=== PATIENT | female | born 1955 | race Asian ===

== ENCOUNTER 2022-11-07 16:46 | Emergency (ER) | payer MEDICARE, MEDICAID, SELFPAY ==
--- NOTE | ~2022-11-07 | CT_ITS ---
EXAMINATION: CT HEAD WITHOUT CONTRAST CLINICAL INFORMATION: Past medical history of brain tumor. Headache x1 month. COMPARISON: No relevant prior imaging. TECHNIQUE: Contiguous axial imaging was performed from the skull base to vertex without intravenous administration of contrast. This CT examination was performed using dose optimization techniques as appropriate, variously including the following: *Automated exposure control *Adjustment of mA and/or kV according to patient size (this includes techniques or standardized protocols for targeted exams where dose is matched to indication/reason for exam; i.e. 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 There is a small focus of cystic encephalomalacia within the left superior parietal lobule. No acute intracranial hemorrhage. No abnormal extra-axial collection. There are scattered nonspecific foci of hypoattenuation within the periventricular white matter most likely represent a chronic manifestation of small vessel ischemia. Cruz-white matter differentiation is otherwise preserved and there is no evidence of acute territorial infarct. The skull base is intact. No mastoid or middle ear effusion. Moderate nasal sinus disease primarily affecting the ethmoid air cells. Globes and orbits are grossly symmetric. CT/CT head/brain wo IV con IMPRESSION: There are chronic changes of a left craniotomy at the vertex. There is a small focus of cystic encephalomalacia within the left superior parietal lobule. Scattered chronic small vessel ischemic changes are also visualized within the periventricular white matter. No evidence of acute territorial infarct or hemorrhage.
[2022-11-07 16:53] VITALS: BP 190/102; PULSE 64; O2SAT 98
[2022-11-07 17:03] VITALS: BP 185/92; PULSE 65; RESP 16; TEMP 36.6; O2SAT 97; BMI 29.4
--- NOTE | 2022-11-07 17:37 | ECG_ITS ---
Test Reason : headache Blood Pressure : / mmHG Vent. Rate : 089 BPM Atrial Rate : 089 BPM P-R Int : 162 ms QRS Dur : 086 ms QT Int : 374 ms P-R-T Axes : 035 002 057 degrees QTc Int : 455 ms Normal sinus rhythm with sinus arrhythmia T wave abnormality, consider anterolateral ischemia Abnormal ECG No previous ECGs available Referred By: Collin Cifuentes Electronically Signed By:Michael Gamble
--- NOTE | 2022-11-07 17:40 | ED_ITS ---
HPI - General Adult General Chief complaint: Headache Stated complaint: SEVERE HEADACHE Time Seen by Provider: 11/07/22 17:11 Source: patient Mode of arrival: ambulatory Limitations: no limitations History of Present Illness HPI narrative: 67 yold female with pmh of HTN, DM, and brain tumor exicised in 2009 presents to the ED for headache for the past month that has worsened the past 5 days. patient denies any vision changes, loss of vision, fever, chills, nausea, neck pain, photophophbia, slurred speech, facial droop, paralysis of extremites, recent trauma, or rash. patient states brain tumor in 2009 did not metasititze. patient states not followed up with her oncologist and had a CT scan of head in 6 years. Patient denies any chest pain or shortness of breath. patient denies any visual changes. Related Data Previous Rx's Medication Instructions Recorded ketorolac 10 mg tablet 10 mg PO QID PRN pain 5 days #20 11/07/22 tabs Allergies Allergy/AdvReac Type Severity Reaction Status Date / Time No Known Allergies Allergy Verified 11/07/22 17:04 Review of Systems Review of Systems: headache Yes all other systems are reviewed and are negative PMFSH Social History Social History Advance Directives: No Advance Directives Information Provided: No Physical Exam ED Vital Signs: Vital Signs - 24 hr 11/07/22 17:03 11/07/22 18:34 11/07/22 20:00 Temperature 97.8 F 98.4 F 98.2 F Pulse Rate 65 72 64 Respiratory Rate 16 18 15 Blood Pressure 185/92 H 140/83 H 141/80 H Pulse Oximetry 97 98 97 Oxygen Delivery Method Room Air Room Air Room Air 11/07/22 22:00 Temperature 98.1 F Pulse Rate 65 Respiratory Rate 16 Blood Pressure 146/78 H Pulse Oximetry 97 Oxygen Delivery Method Room Air BMI result Body Mass Index 29.4 Const General: cooperative, healthy appearing, comfortable, no acute distress, well developed, alert, awake and Physically active Orientation/consciousness: oriented to person, oriented to place, oriented to time and patient oriented x3 HENMT Head: Yes normal to inspection, Yes No palpable skull fracture present, Yes normocephalic, Yes atraumatic and No abrasion Head images: 1. area of headache. area of brain surgery incision in the past. no eccymosis, erythema, pus drainage, or temdermess Ears: hearing grossly normal bilaterally, external ears normal, TM's normal bilaterally, TM normal on the right, TM normal on the left, EAC's normal, mastoids normal and no periauricular adenopathy Face and sinus: Yes normal facial exam and Yes sinuses nontender Throat: Yes posterior oropharynx normal, Yes tonsils normal and Yes uvula midline Eyes General: appearance normal, both eyes and all related structures Pupils: Equal, round and reactive pupils present Neck Neck: Yes normal visual inspection, Yes full ROM, Yes no lymphadenopathy, Yes no meningeal signs, Yes trachea midline, Yes supple, No anterior neck swelling, No midline deformity, No positive Brudzinski's sign, No positive Kernig's sign and No tender Chest Chest palpation & inspection: normal inspection of the chest and normal palpation of entire chest wall Resp Effort & Inspection: normal respiratory effort and able to speak in complete sentences Auscultation: clear to auscultation bilaterally Cardio Jugular venous distension: no JVD Heart sounds: S1 normal heart sound present and S2 normal heart sound present GI Inspection: Yes normal to inspection and No abdominal wall ecchymosis Palpation (GI): Soft to palpation, not firm, nontender, no guarding and not rigid General: No CVA tenderness and Yes no CVA tenderness Back/Spine/Pelvis Back: no CVA tenderness, No CVA tenderness and No back tenderness Skin General skin exam: no rashes or lesions noted and elasticity normal Neuro General: oriented to person, oriented to place, oriented to time, patient oriented x3, gait normal, tone normal, moves all extremities, Normal light touch and pain sensation, no meningeal signs, no focal motor deficits, CN's II-XI intact bilaterally and normal sensation to monofilament Cranial nerves: Yes Equal, round and reactive pupils present Extrem General: Yes normal to inspection and Yes full ROM Psych Appearance: grossly normal, well kempt and not disheveled Course Course Course Narrative: 67 yold female with headache for the past month. no trauma. will do repeat scan, labs, and pain meds. ESR and CRP althouth very unlikely Temporal arteritis Reevaluation(s) Reevaluation #1: Patient sleeping comforably in bed. HEad CT scan does not shows new brain mass, bleed, or stroke. labs normal. CRP negative. ESR slightly elevated without any visual changes and resloving headache unliekly Temporal artertis. Dr. Yadav Agrees. History & physical exam does not indicate meningitis. Time: 20:06 Medications Administered Discontinued Medications Generic Name Dose Route Start Last Admin Trade Name Regina PRN Reason Stop Dose Admin Sodium Chloride 1,000 mls @ 999 mls/hr 11/07/22 20:41 11/07/22 23:04 Ns IV 11/07/22 21:41 Infused .Q1H1M STA Infusion Ketorolac Tromethamine 30 mg 11/07/22 20:39 11/07/22 21:26 Ketorolac Tromethamine 30 Mg/Ml Vial IVPUSH 11/07/22 20:40 30 mg ONCE ONE Administration Metoclopramide HCl 10 mg 11/07/22 17:36 11/07/22 18:10 Metoclopramide Hcl 10 Mg/2 Ml Vial IVPUSH 11/07/22 17:37 10 mg ONCE ONE Administration Morphine Sulfate 4 mg 11/07/22 17:36 11/07/22 18:10 Morphine Sulfate 4 Mg/Ml Cartridge IVPUSH 11/07/22 17:37 4 mg ONCE ONE Administration Protocol Medical Decision Making Medical Decision Making MDM Narrative: 67 yold female presents to the ED for left parietal headache for one month. She denies any fever, chills, photophobia, neck stiffness, visual changes, loss of vision, recent head trauma, slurred speech, facial droop, or paralysis of extremities. Head CT scan negative for new brain mass, bleed, or stroke. Troponin is negaive. EKG negative stemi. history& physical exam not indicated meningitis or encephalitis. Although slight elevated ESR history & physical exam does not indicate Temporal arteritis. Differential Diagnosis Differential Diagnoses: The differential diagnosis associated with the presentation includes (brain bleed, skull fracture, meningitis, temporal arteritis, encephalitis, stroke, brain mass) Admission/Observation Consideration of admission/observation: Escalation of care including admission/observation considered Lab Data 11/07/22 18:31 11/07/22 18:31 Labs: Lab Results 11/07/22 11/07/22 11/07/22 Range/Units 18:31 18:31 18:31 WBC 6.8 (4.8-10.8) X10*3/uL RBC 4.03 L (4.20-5.50) X10*6/uL Hgb 11.9 L (12.0-16.0) g/dl Hct 35.2 L (37.0-47.0) % MCV 87.3 (80.0-98.0) fL MCH 29.5 (27.0-33.0) pg MCHC 33.8 (31.0-35.0) g/dl RDW 12.6 (11.0-16.0) % Plt Count 280 (160-400) X10*3/uL MPV 11.9 (9.4-12.3) fL Immature Gran % (Auto) 0.4 (0.0-0.4) % Neut % (Auto) 54.4 (45-73) % Lymph % (Auto) 31.9 (20-40) % [place] % (Auto) 6.6 (2-11) % Eos % (Auto) 6.0 H (0-4) % Baso % (Auto) 0.7 (0-2) % Lymph # (Auto) 2.2 (1.2-4.9) X10*3/uL [place] # (Auto) 0.5 (0.1-1.2) X10*3/uL Eos # (Auto) 0.4 (0.0-0.4) X10*3/uL Baso # (Auto) 0.1 (0.0-0.2) X10*3/uL Abs Immat Gran (auto) 0.03 (0.00-0.03) X10*3/uL Absolute Neuts (auto) 3.7 (2.0-8.3) x10*3/uL Absolute Nucleated RBC 0.000 (0.0-0.012) X10*3/uL Nucleated RBC % (auto) 0.0 (0.0-0.2) /100WBC ESR (0-20) MM/HR PT 10.0 (10.0-13.1) SEC INR 0.9 (0.9-1.1) APTT 29.4 (26.0-36.4) SEC Sodium 130 L (135-145) mmol/L Potassium 4.2 (3.3-5.1) mmol/L Chloride 102 (96-108) mmol/L Carbon Dioxide 20 L (22-29) mmol/L Anion Gap 12 (12-20) BUN 12 (9-16) mg/dL Creatinine 1.12 (0.5-1.4) mg/dL Estim Creat Clear Calc 42.0 Estimated GFR 49 Random Glucose 112 (60-115) mg/dL Calcium 9.2 (8.4-10.2) mg/dL Total Bilirubin 0.5 (0.0-1.0) mg/dL AST 37 H (5-31) U/L ALT 41 H (0-31) U/L Alkaline Phosphatase 163 H (39-117) U/L Troponin I High Sens (<3.5-17.0) ng/L C-Reactive Protein < 0.10 (< or = 0.50) mg/dL Total Protein 7.2 (6.5-8.0) g/dL Albumin 4.0 (3.5-5.0) g/dL Influenza Type A (PCR) (Negative) Influenza Type B (PCR) (Negative) RSV RNA Qual (PCR) (Negative) SARS-CoV-2 RNA (RT-PCR) (Negative) 11/07/22 11/07/22 11/07/22 Range/Units 18:31 18:31 18:31 WBC (4.8-10.8) X10*3/uL RBC (4.20-5.50) X10*6/uL Hgb (12.0-16.0) g/dl Hct (37.0-47.0) % MCV (80.0-98.0) fL MCH (27.0-33.0) pg MCHC (31.0-35.0) g/dl RDW (11.0-16.0) % Plt Count (160-400) X10*3/uL MPV (9.4-12.3) fL Immature Gran % (Auto) (0.0-0.4) % Neut % (Auto) (45-73) % Lymph % (Auto) (20-40) % [place] % (Auto) (2-11) % Eos % (Auto) (0-4) % Baso % (Auto) (0-2) % Lymph # (Auto) (1.2-4.9) X10*3/uL [place] # (Auto) (0.1-1.2) X10*3/uL Eos # (Auto) (0.0-0.4) X10*3/uL Baso # (Auto) (0.0-0.2) X10*3/uL Abs Immat Gran (auto) (0.00-0.03) X10*3/uL Absolute Neuts (auto) (2.0-8.3) x10*3/uL Absolute Nucleated RBC (0.0-0.012) X10*3/uL Nucleated RBC % (auto) (0.0-0.2) /100WBC ESR 26 H (0-20) MM/HR PT (10.0-13.1) SEC INR (0.9-1.1) APTT (26.0-36.4) SEC Sodium (135-145) mmol/L Potassium (3.3-5.1) mmol/L Chloride (96-108) mmol/L Carbon Dioxide (22-29) mmol/L Anion Gap (12-20) BUN (9-16) mg/dL Creatinine (0.5-1.4) mg/dL Estim Creat Clear Calc Estimated GFR Random Glucose (60-115) mg/dL Calcium (8.4-10.2) mg/dL Total Bilirubin (0.0-1.0) mg/dL AST (5-31) U/L ALT (0-31) U/L Alkaline Phosphatase (39-117) U/L Troponin I High Sens < 2.7 (<3.5-17.0) ng/L C-Reactive Protein (< or = 0.50) mg/dL Total Protein (6.5-8.0) g/dL Albumin (3.5-5.0) g/dL Influenza Type A (PCR) NEGATIVE (Negative) Influenza Type B (PCR) NEGATIVE (Negative) RSV RNA Qual (PCR) NEGATIVE (Negative) SARS-CoV-2 RNA (RT-PCR) NEGATIVE (Negative) Independent Interpretation I performed an independent interpretation of an: EKG (Normal Sinus RHythm VEnt rate 89, CA 162, QRS 86, and QTC 455) and CT Scan (NOrmal sinus, Vent rate 89. CA interval 162, QRS 86, QTc 455. negative stemi) Radiology Impression Discussion of test interpretation with radiology: I have reviewed the radiologist's reading. Prescription Management I considered prescription management with: Pain Medication (Ketorlac) Discharge Plan Discharge Clinical Impression: Headache Patient Disposition: Home, Self-Care Instructions: General Headache (ED) Additional Instructions: Please follow up with your PCP, neurologist, and prior neurosurgeon. Return to the ED for any fever, chills, worsening headache, nausea, vomitting, rash, photophobia, chest pain, shortness of breath, neck stiffness, slurred speech, paralysis of extremities, loss of visions, vision changes, facial droop, or any other concerning symptoms. Prescriptions: New ketorolac 10 mg tablet 10 mg PO QID PRN (Reason: pain) 5 Days Qty: 20 0RF Rx Instructions: received 30mg toradol IM in the ED Interventions: ED Discharge Assessment Last Done: 11/07/22 23:06 Discharge Date/Time: 11/07/22 23:07 Print Language: Paraguayan
[2022-11-07] MEDS: Metoclopramide HCl 10 MG/2 ML VIAL IVPUSH (18:10)
[2022-11-07] MEDS: Morphine Sulfate 4 MG/ML CARTRIDGE IVPUSH (18:10)
[2022-11-07 18:34] VITALS: BP 140/83; PULSE 72; RESP 18; TEMP 36.9; O2SAT 98
--- NOTE | 2022-11-07 18:34 | MHC.EDTECH ---
PT EKG TAKEN AND WAS READ BY PROVIDER ,BLOOD DRAWN ,RSV/COVID SWAB COLLECTED AND SENT TO LAB ,VITALS SIGN TAKEN ,PT SON AT BEDSIDE ,PT ON HER WAY TO CT SCAN .
[2022-11-07 18:35] LABS: MANUAL DIFF FLAG NO
[2022-11-07 18:45] LABS: Basophils Absolute Auto 0.1 X10*3/uL (0.0-0.2); Basophils Percent Auto 0.7 % (0-2); Eosinophils Absolute Auto 0.4 X10*3/uL (0.0-0.4); Hematocrit 35.2 % (37.0-47.0); Hemoglobin 11.9 g/dl (12.0-16.0); Imm Gran Abs Auto 0.03 X10*3/uL (0.00-0.03); Imm Gran Pct Auto 0.4 % (0.0-0.4); Lymphocytes Absolute Auto 2.2 X10*3/uL (1.2-4.9); Lymphocytes Percent Auto 31.9 % (20-40); Mean Corpuscular HGB Conc 33.8 g/dl (31.0-35.0); Mean Corpuscular Hemoglobin 29.5 pg (27.0-33.0); Mean Corpuscular Volume 87.3 fL (80.0-98.0); Mean Platelet Volume 11.9 fL (9.4-12.3); Monocytes Absolute Auto 0.5 X10*3/uL (0.1-1.2); Monocytes Percent Auto 6.6 % (2-11); Neutrophils Absolute Auto 3.7 x10*3/uL (2.0-8.3); Neutrophils Percent Auto 54.4 % (45-73); Platelet Count 280 X10*3/uL (160-400); Red Blood Count 4.03 X10*6/uL (4.20-5.50); Red Cell Distribution Width 12.6 % (11.0-16.0); White Blood Count 6.8 X10*3/uL (4.8-10.8)
[2022-11-07 18:51] LABS: Alanine Aminotransferase 41 U/L (0-31); Alkaline Phosphatase 163 U/L (39-117); Anion Gap 12 (12-20); Aspartate Amino Transferase 37 U/L (5-31); Bilirubin Total 0.5 mg/dL (0.0-1.0); Blood Urea Nitrogen 12 mg/dL (9-16); C Reactive Protein < 0.10 mg/dL (< or = 0.50); Calcium 9.2 mg/dL (8.4-10.2); Carbon Dioxide 20 mmol/L (22-29); Chloride 102 mmol/L (96-108); Estimated Glomerular Filt Rate 49; Glucose Random 112 mg/dL (60-115); Potassium 4.2 mmol/L (3.3-5.1); Sodium 130 mmol/L (135-145); Total Protein 7.2 g/dL (6.5-8.0)
[2022-11-07 18:54] LABS: INTERNATIONAL NORM RATIO 0.9 (0.9-1.1)
[2022-11-07 18:57] LABS: Partial Thromboplastin Time 29.4 SEC (26.0-36.4)
[2022-11-07 19:02] LABS: Troponin-I High Sensitivity < 2.7 ng/L (<3.5-17.0)
--- NOTE | 2022-11-07 19:06 | PC.NURSE ---
assumed care of pt at 1900, pt in CT.
[2022-11-07 19:16] LABS: Influenza A PCR NEGATIVE (Negative); Influenza B PCR NEGATIVE (Negative); Resp Syncy Virus RNA Qual PCR NEGATIVE (Negative); SARS COV2 PCR INHOUSE NEGATIVE (Negative)
[2022-11-07 19:31] LABS: Erythrocyte Sedimentation Rate 26 MM/HR (0-20)
[2022-11-07 20:00] VITALS: BP 141/80; PULSE 64; RESP 15; TEMP 36.8; O2SAT 97
--- NOTE | 2022-11-07 20:00 | MHC.EDTECH ---
2000 ROUNDING DONE ,VITALS SIGN TAKEN ,PT SAID SHE STILL HAVE A HEADACHE ,EVELIA QUEEN AWARE ,PT SON AT BEDSIDE .
[2022-11-07] MEDS: 0.9 % Sodium Chloride 1,000 ML 999 ML IV (21:25)
[2022-11-07] MEDS: Ketorolac Tromethamine 30 MG/ML VIAL IVPUSH (21:26)
--- NOTE | 2022-11-07 21:29 | PC.NURSE ---
pt medicated per MAR for 8/10 h/a, NS running.
[2022-11-07 22:00] VITALS: BP 146/78; PULSE 65; RESP 16; TEMP 36.7; O2SAT 97
--- NOTE | 2022-11-07 22:12 | MHC.EDTECH ---
PT WAS ASSISTED TO BATHROOM AND BACK TO BED ,2200 VITALS SIGN TAKEN .
== END 2022-11-07 23:07 | disposition home or self-care (01) ==
LOC: HO.ED 17:56
PROVIDERS: Physician Assistant; Emergency Provider Internal Medicine
DX: R51.9 Headache, unspecified (principal); E11.9 Type 2 diabetes mellitus without complications; I10 Essential (primary) hypertension; Z20.822 Contact with and (suspected) exposure to COVID-19; Z20.828 Contact with and (suspected) exposure to other viral communicable diseases; Z85.841 Personal history of malignant neoplasm of brain
CPT/HCPCS: 0241U; 36415; 70450; 80053; 84484; 85025; 85610; 85652; 85730; 86140; 93005; 96361; 96374; 96375; 99284; 99285; J1885; J2270; J2765

== ENCOUNTER 2023-11-21 14:59 | Emergency (ER) | payer MEDICARE, MEDICAID, SELFPAY ==
--- NOTE | ~2023-11-21 | XR_ITS ---
EXAMINATION: XR HAND/WRIST, LEFT CLINICAL INFORMATION: Pain, injury COMPARISON: None TECHNIQUE: PA, lateral, and oblique views of the left hand and wrist. Also, a scaphoid view is obtained. FINDINGS: Bones have normal alignment within the hand and wrist. No evidence of acute fracture, subluxation or focal soft tissue swelling. Joint spaces of the wrist are normal. The metacarpophalangeal joints are normal. Small osteophytes of the thumb interphalangeal joint and at other interphalangeal joints, as well. No erosions or periostitis. No radiopaque foreign body. XR/XR hand wrist LT IMPRESSION: * No acute osseous injury in the left hand or wrist. * Mild osteoarthrosis of several interphalangeal joints.
--- NOTE | ~2023-11-21 | CT_ITS ---
EXAMINATION: CT HEAD WITHOUT CONTRAST CLINICAL INFORMATION: Fall. Pain. Head injury. COMPARISON: Previous head CT from October 2022 TECHNIQUE: Contiguous axial imaging was performed from the skull base to vertex without intravenous administration of contrast. This CT examination was performed using dose optimization techniques as appropriate, variously including the following: *Automated exposure control *Adjustment of mA and/or kV according to patient size (this includes techniques or standardized protocols for targeted exams where dose is matched to indication/reason for exam; i.e. extremities or head) *Use of iterative reconstruction technique DLP: 587 mGy-cm FINDINGS: There is no evidence of an extra-axial collection. There is no evidence of intra or extra-axial hemorrhage. The ventricles and extra-axial CSF spaces are slightly prominent suggestive of mild generalized atrophy. There is nonspecific periventricular white matter disease. There is encephalomalacia or postsurgical change in the left parietal lobe. No mass, mass effect or acute infarct seen. No skull fracture. Bilateral postcraniotomy changes at the vertex. Mild inflammatory changes in the bilateral ethmoid sinuses. Sinuses mastoid air cells and middle ears otherwise clear. CT/CT head/brain wo IV con IMPRESSION: No acute findings. No change from October 2022 exam.
--- NOTE | ~2023-11-21 | XR_ITS ---
EXAMINATION: XR ANKLE, LEFT XR FOOT, LEFT CLINICAL INFORMATION: Pain, injury. COMPARISON: None available. TECHNIQUE: AP, lateral, and mortise views of the left ankle. AP, lateral, and oblique views of the left foot. FINDINGS: No fracture is appreciated. Alignment is anatomic. No erosions. Plantar and Achilles calcaneal spurs. Joint spaces appear maintained. Soft tissues appear unremarkable. XR/XR ankle LT min 3V IMPRESSION: The history submitted states only pain, injury. It does not state exactly where pathology is suspected, limiting the study. Recommend clinical correlation. No fracture identified.
--- NOTE | ~2023-11-21 | XR_ITS ---
EXAMINATION: XR ANKLE, LEFT XR FOOT, LEFT CLINICAL INFORMATION: Pain, injury. COMPARISON: None available. TECHNIQUE: AP, lateral, and mortise views of the left ankle. AP, lateral, and oblique views of the left foot. FINDINGS: No fracture is appreciated. Alignment is anatomic. No erosions. Plantar and Achilles calcaneal spurs. Joint spaces appear maintained. Soft tissues appear unremarkable. XR/XR foot LT min 3V IMPRESSION: The history submitted states only pain, injury. It does not state exactly where pathology is suspected, limiting the study. Recommend clinical correlation. No fracture identified.
--- NOTE | ~2023-11-21 | CT_ITS ---
EXAMINATION: CT CERVICAL SPINE WITHOUT CONTRAST CLINICAL INFORMATION: Fall. Pain. Injury. COMPARISON: None available. TECHNIQUE: Axial images through the cervical spine without contrast. Sagittal and coronal reconstructions on the technologist workstation. This CT examination was performed using dose optimization techniques as appropriate, variously including the following: *Automated exposure control *Adjustment of mA and/or kV according to patient size (this includes techniques or standardized protocols for targeted exams where dose is matched to indication/reason for exam; i.e. extremities or head) *Use of iterative reconstruction technique DLP: 315 mGy-cm FINDINGS: Bone alignment is normal. No fracture or dislocation. Mild degenerative spondylosis and degenerative disc disease at C4-5 and C5-6. Prevertebral soft tissues are normal. Bilateral mild carotid calcification. There is medial course of both carotid arteries, right greater than left. The right ICA also appears larger than the left measuring 1.6 x 1.7 cm in diameter compared to 1 cm on the left. Right brachiocephalic artery appears prominent measuring 2.2 cm in diameter. Heterogenous appearing thyroid gland with multiple small calcifications. Visualized lung apices are clear. CT/CT cervical spine wo IV con IMPRESSION: Degenerative changes. No fracture or dislocation seen. Question ectasia of the right internal carotid artery and right brachiocephalic artery. Findings could be better evaluated with CTA. Heterogeneous thyroid gland with multiple small calcifications probably representing a goiter. This could be better evaluated with ultrasound. Fleischner guidelines were followed.
[2023-11-21 15:07] VITALS: BP 198/95; PULSE 81; RESP 16; TEMP 36.6; O2SAT 100; BMI 26.2
--- NOTE | 2023-11-21 15:07 | ED.GENADULT ---
[facility] - General Adult General Chief complaint: Fall Stated complaint: fall 11/19 Time Seen by Provider: 11/21/23 15:44 Source: patient and family Mode of arrival: ambulatory Limitations: no limitations History of Present Illness ED Provider: shukri BURNS narrative: Patient is a 68-year-old female presenting to the emergency department with primary complaint of left foot and ankle pain, left 4th finger pain after a fall yesterday. States that she was attempting to sit down outside when she missed the seat and fell to the ground. She denies head strike or loss of consciousness. She has not anticoagulated. Did use Tylenol at home with decreased pain. Denies any dizziness, lightheadedness, difficulty with ambulation. Denies any neck or back pain. MD complaint: left foot and hand pain Onset (ago): day(s) Location: left Radiation: non-radiation Severity: moderate Quality: aching Pain Consistency: constant Relieving factors: rest Associated symptoms: denies other symptoms Treatments prior to arrival: other (Tylenol) Related Data Previous Rx's ?Medication ?Instructions ?Recorded ketorolac 10 mg tablet 10 mg PO QID PRN pain 5 days #20 11/07/22 tabs Allergies Allergy/AdvReac Type Severity Reaction Status Date / Time No Known Allergies Allergy Verified 11/21/23 15:09 Review of Systems Review of Systems: As per HPI. Yes all other systems are reviewed and are negative Constitutional: Constitutional: Reports as per HPI [facility] Social History Social History Advance Directives: No Advance Directives Information Provided: No Do you have a plan to hurt others: No Plan Physical Exam ED Vital Signs: Vital Signs - 24 hr 11/21/23 15:07 11/21/23 16:45 Temperature 97.8 F 97.8 F Pulse Rate 81 68 Respiratory Rate 16 16 Blood Pressure 198/95 H 159/82 H Pulse Oximetry 100 96 Oxygen Delivery Method Room Air Room Air BMI result Body Mass Index 26.2 Vital signs have been reviewed and appear to be correct. Blood pressure elevated. Heart rate normal. Respiratory rate normal. Temperature normal. Oxygen saturation normal. Const General: cooperative, healthy appearing and no acute distress Orientation/consciousness: oriented to person, oriented to place, oriented to time and patient oriented x3 Limitations: no limitations HENMT Head: Yes normocephalic and Yes atraumatic Ears: external ears normal General nose exam: Normal external nose present Face and sinus: Yes face symmetric Mouth: oropharynx normal and moist mucous membranes Throat: Yes uvula midline Eyes Pupils: Equal, round and reactive pupils present Neck Neck: Yes normal visual inspection and Yes supple Resp Effort & Inspection: normal respiratory effort and able to speak in complete sentences Auscultation: clear to auscultation bilaterally Cardio Rate: regular rate Rhythm: regular rhythm Heart sounds: S1 normal heart sound present and S2 normal heart sound present GI Palpation (GI): Soft to palpation and nontender Auscultation: normoactive bowel sounds General: Yes no CVA tenderness Back/Spine/Pelvis Back: no CVA tenderness Cervical Spine: normal cervical lordosis, cervical ROM normal, No Cervical spine tenderness and No step off deformity Thoracic/Lumbar Spine: thoracic and lumbar spine normal to inspection, thoraco-lumbar ROM normal, No thoracic spinal tenderness and No lumbar spinal tenderness Skin General skin exam: elasticity normal and turgor normal Neuro General: oriented to person, oriented to place, oriented to time, patient oriented x3, moves all extremities, no focal motor deficits and CN's II-XI intact bilaterally Cranial nerves: Yes Equal, round and reactive pupils present Cognition (Neuro): normal cognition Extrem General: Yes full ROM, Yes no pedal edema and Yes no calf tenderness Left upper extremity: hand Details: neuromotor exam normal, neurosensory exam normal, tenderness Location: of the 4th digit Location: involving the entire digit, vascular exam Details: radial pulse present and normal capillary refill, normal ROM of fingers and swelling Location: of the 4th digit Location: involving the entire digit (mild) Left lower extremity: ankle Details: normal to inspection and normal ROM; no tenderness and no ecchymosis and foot Details: normal capillary refill, tenderness Location: of the dorsal foot Location: distally, toes with normal ROM, no edema, ecchymosis dorsal distal Details: single and vascular exam Details: dorsalis pedis pulse present and posterior tibial pulse present Psych Mental Status: mental status grossly normal Affect: normal affect Thought process: Normal thought process present Course Course Course Narrative: RME performed by Nicky Sinclair PA-C. Patient is a 68 year old assigned female at presenting to the emergency department after a fall. Patient states that her left foot and left hand hurt. Patient's son states that the patient sat down, missed where she was going to sit, and fell. Detailed physical exam and review of systems are deferred to the equity research analyst. Imaging ordered. Patient placed back in the waiting room pending room availability and results. Medical Decision Making Medical Decision Making [facility] Narrative: Patient is a 68-year-old female presenting to the emergency department with primary complaint of left foot and ankle pain, left 4th finger pain after a fall yesterday. On exam patient is awake, A+Ox3, VS WNL, afebrile, normal neurological exam without focal deficits, physical exam findings as above. Given reported symptoms and physical exam findings, initial differential includes left hand contusion versus fracture, left ankle and foot contusion versus fracture. Less likely ICH, skull fracture, cervical vertebral fracture subluxation. X-rays of left hand/wrist, ankle and foot notable for no acute fractures. CT head and C-spine is without evidence of ICH, skull or cervical vertebral fracture or subluxation. My interpretation is in agreement with the radiologist's interpretation. Results discussed with patient and family and all questions answered. Advised patient that pain is likely due to contusions, advised her to continue using Tylenol, keep injuries elevated while at rest and apply ice intermittently. Instructed patient follow-up with primary care provider. Return precautions discussed at bedside. Patient and family verbalized understanding of and agreement with plan. Differential Diagnosis Differential Diagnoses: The differential diagnosis associated with the presentation includes As per MDM. Admission/Observation Consideration of admission/observation: Escalation of care including admission/observation considered Patient would have been admitted to the hospital had their work up had any findings where hospital admission was appropriate and their clinical presentation warranted hospital admission. Independent Interpretation I performed an independent interpretation of an: Plain X-Ray and CT Scan Radiology Impression Discussion of test interpretation with radiology: I have reviewed the radiologist's reading. Radiologist Impression: CT/CT head/brain wo IV con IMPRESSION: No acute findings. No change from October [address]/CT cervical spine wo IV con IMPRESSION: Degenerative changes. No fracture or dislocation seen. Question ectasia of the right internal carotid artery and right brachiocephalic artery. Findings could be better evaluated with CTA. Heterogeneous thyroid gland with multiple small calcifications probably representing a goiter. This could be better evaluated with ultrasound. Fleischner guidelines were followed. XR/XR hand wrist LT IMPRESSION: * No acute osseous injury in the left hand or wrist. * Mild osteoarthrosis of several interphalangeal joints. XR/XR foot LT min 3V IMPRESSION: The history submitted states only pain, injury. It does not state exactly where pathology is suspected, limiting the study. Recommend clinical correlation. No fracture identified. XR/XR ankle LT min 3V IMPRESSION: The history submitted states only pain, injury. It does not state exactly where pathology is suspected, limiting the study. Recommend clinical correlation. No fracture identified. External Record Review External record reviewed: Inpatient record, Office record and Outpatient record Discharge Plan Discharge Clinical Impression: Contusion of hand, left, Contusion of foot, left Patient Disposition: Home, Self-Care Instructions: Foot Contusion (ED), Contusion in Adults (ED), R.I.C.E. Treatment (ED) Additional Instructions: You were evaluated in the emergency department today for injuries after a fall. Your evaluation did not show evidence of injuries requiring emergent medical treatment at this time. There were no evidence of fractures on your x-rays. We recommend that you continue to take 650 mg of Tylenol every 6 hours as needed for discomfort. We also recommend applying ice to affected areas for 10-15 minutes at a time, using caution not to apply ice directly to skin. Please follow-up with your primary care provider this week. Return to the emergency department if you develop worsening pain, new redness, swelling, numbness or tingling or any other concerning symptoms. Prescriptions: No Action ketorolac 10 mg tablet 10 mg PO QID PRN (Reason: pain) 5 Days Qty: 20 0RF Rx Instructions: received 30mg toradol IM in the ED Print Language: Macedonian
[2023-11-21 16:45] VITALS: BP 159/82; PULSE 68; RESP 16; TEMP 36.6; O2SAT 96
[2023-11-21 17:58] VITALS: BP 182/85; PULSE 72; RESP 18; TEMP 37.1; O2SAT 98
== END 2023-11-21 17:59 | disposition home or self-care (01) ==
PROVIDERS: Emergency Provider Emergency Medicine
DX: S60.222A Contusion of left hand, initial encounter (principal); S90.32XA Contusion of left foot, initial encounter; R51.9 Headache, unspecified; M54.2 Cervicalgia; M79.642 Pain in left hand; M25.572 Pain in left ankle and joints of left foot; M25.532 Pain in left wrist; W01.0XXA Fall on same level from slipping, tripping and stumbling without subsequent striking against object, initial encounter; Y93.9 Activity, unspecified; Y92.007 Garden or yard of unspecified non-institutional (private) residence as the place of occurrence of the external cause; Y99.8 Other external cause status
CPT/HCPCS: 70450; 72125; 73110; 73130; 73610; 73630; 99284